=== PATIENT | female | born 1970 | race African-American/Black ===

== ENCOUNTER 2016-11-19 17:49 | Emergency (ER) | payer OTHER ==
[~2016-11-19 17:49] MED LIST: BACITRACIN15 GM OINT EXT; NO MEDICATIONS; PREDNISONE PO; VISTARIL PO
== END 2016-11-19 19:01 | disposition home or self-care (01) ==
LOC: CFTX 17:49 → CED 17:49 → CFTX 18:56
DX: L03.116 Cellulitis of left lower limb (principal); F17.210 Nicotine dependence, cigarettes, uncomplicated
CPT/HCPCS: 99283

== ENCOUNTER 2016-12-12 11:07 | Emergency (ER) | payer OTHER ==
[~2016-12-12] VITALS: Ht 160 cm; Wt 70.3 kg
== END 2016-12-12 11:45 | disposition home or self-care (01) ==
LOC: CFTX 11:07 → CED 11:07 → CFTX 11:35
DX: S40.261A Insect bite (nonvenomous) of right shoulder, initial encounter (principal); L03.113 Cellulitis of right upper limb; K21.9 Gastro-esophageal reflux disease without esophagitis; F17.200 Nicotine dependence, unspecified, uncomplicated; W57.XXXA Bitten or stung by nonvenomous insect and other nonvenomous arthropods, initial encounter
CPT/HCPCS: 99282